=== PATIENT | male | born 1985 | race Two or more races ===

== ENCOUNTER 2019-10-07 10:34 | Emergency (ER) | payer SELFPAY ==
[~2019-10-07] VITALS: Ht 167.6 cm; Wt 61.3 kg
[2019-10-07] MEDS ORDERED: OXYMETAZOLINE 0.05% NASAL SPRAY 30ML BOTTLE. NS ONE (11:11)
--- NOTE | 2019-10-07 11:16 | PHYS DOC ---
Past History Past Medical History: No Pertinent History Past Surgical History: No Surgical History Alcohol Use: Occasionally General Adult EDM: Chief Complaint: NOSEBLEED HPI: HPI: 34-year-old male past medical history significant for insomnia presents the ED with complaints of bleeding from his left nose that started on 4:00 this morning, sent here by his employer. No prior history of similar symptoms. No recent surgeries or trauma to the face. Is not on any anticoagulants, takes no routine medications. Follows with pcp who has diagnosed him with insomnia. Is concerned the chemicals that he is exposed to at work may have caused this - is a cook, is wearing a facemask. Occasional alcohol use. No known exposure to COVID. Review of systems: Denies associated fever, chills, cough, sore throat, neck stiffness, headache, chest pain or pressure, dyspnea, orthopnea, hemoptysis, n/v/d/c, hematemesis, rash, abdominal or back pain. Current Medications: Current Meds: Current Medications Medications (Trade) Dose Ordered Sig/Elyse Start Time Stop Time Status Last Admin Dose Admin Oxymetazoline HCl (Afrin) 100 spray STK-MED ONCE 10/07/19 11:11 10/07/19 11:11 DC Allergies: Allergies: Allergies Coded Allergies Type Severity Reaction Last Updated Verified No Known Drug Allergies 10/07/19 No Physical Exam: PE: Constitutional: Well developed, well nourished, no acute distress, non-toxic appearance. [] HENT: Normocephalic, atraumatic, bilateral external ears normal, oropharynx moist, no oral exudates, left anterior nare with blood clot at nasal septum, 9 o'clock position, no active bleeding from the nose, oropharynx pain with no active bleeding, clear right nare Eyes: EOMI, conjunctiva normal, no discharge. [] Neck: Normal range of motion, no tenderness, supple, no stridor. [] Cardiovascular:Heart rate regular rhythm, no murmur [] Lungs & Thorax: Bilateral breath sounds clear to auscultation [] Abdomen: Bowel sounds normal, soft, no tenderness, no masses, no pulsatile masses. [] Skin: Warm, dry, no erythema, no rash. [] Back: No tenderness, no CVA tenderness. [] Extremities: No tenderness, no cyanosis, no clubbing, ROM intact, no edema. [] Neurologic: Alert and oriented X 3, normal motor function, normal sensory funct ion, no focal deficits noted. [] Psychologic: Affect normal, judgement normal, mood normal. [] Current Patient Data: Vital Signs: Vital Signs Date Time Temp Pulse Resp B/P (MAP) Pulse Ox O2 Delivery O2 Flow Rate FiO2 10/07/19 10:35 97.9 86 18 133/83 (100) 96 Room Air EKG: EKG: [] Radiology/Procedures: Radiology/Procedures: [] Course & Med Decision Making: Course & Med Decision Making Pertinent Labs and Imaging studies reviewed. (See chart for details) Concern for left anterior epistaxis with intact blood clot, no active bleeding. Sinus precautions recommended. Afrin and nasal clamp given in the ED. Encouraged urgent outpatient follow-up with PMD and ENT at . Life-threatening processes were considered (posterior epistaxis, hemorrhagic shock, trauma/facial fxs, ICH, etc) but are low suspicion at this time, given history and physical exam. All patient's questions were answered and pt was stable at time of discharge. I spoken with the patient and her caregivers. I explained the patient's condition, diagnoses and treatment plan based on the information available to me at this time. I have answered the patient and her caregiver's questions and addressed any concerns. The patient and her caregivers have a good understan ding of patient's diagnosis, condition and treatment plan as can be expected at this point. Vital signs have been stable. Patient's condition is stable and appropriate for discharge from the emergency department. Patient will pursue further outpatient evaluation with primary care physician or other designated or consulting physician as outlined in the discharge instructions. The patient and/or caregivers are agreeable to this plan of care and follow-up instructions have been explained in detail. The patient and/or caregivers have received these instructions in written form and have expressed an understanding of the discharge instructions. The patient and/or caregivers are aware that any significant change of condition or worsening of symptoms should prompt immediate return to this or the closest emergency department or call to 911. Hx/PE obtained using packing supervisor services. Geronimo Disclaimer: Geronimo Disclaimer: This electronic medical record was generated, in whole or in part, using a voice recognition dictation system. Departure Departure: Impression: Primary Impression: Anterior epistaxis Disposition: HOME/RESIDENCE PRIOR TO ADM Condition: STABLE Patient Instructions: Nosebleed Additional Instructions: ENT-Dr. Shane Hager M.D., [facility] [address] [place] [address] Justification of Admission: Justification of Admission: Justification of Admission Dx: N/A ISAIAS ERICKSON DO Oct 07, 2019 11:15
[2019-10-07] MEDS: OXYMETAZOLINE 0.05% NASAL SPRAY 30ML BOTTLE. NS ONE (11:19)
[2019-10-07 11:40] VITALS: BP 129/80
== END 2019-10-07 11:40 | disposition home or self-care (01) ==
LOC: ER 10:34
DX: R04.0 Epistaxis (principal); G47.00 Insomnia, unspecified
CPT/HCPCS: 99282

== ENCOUNTER 2020-03-25 14:05 | Emergency (ER) | payer SELFPAY ==
[~2020-03-25] VITALS: Ht 167.6 cm; Wt 61.3 kg
[2020-03-25 14:06] VITALS: BP 129/80
--- NOTE | 2020-03-25 14:21 | PHYS DOC ---
Past History Past Medical History: No Pertinent History Past Surgical History: No Surgical History Alcohol Use: Occasionally Adult General Chief Complaint Chief Complaint: SEIZURE HPI HPI Patient is a 35-year-old male, does not speak Lithuanian, house literary writer service used to interpret Lithuanian/Slovenian medical language. Patient was brought to the emergency department by EMS after he had a seizure at work. Patient is in a postictal state, limited HPI from patient. Patient does not remember seizure, does not remember how he arrived to the ER today. Patient states he hit himself in the head with a door at work accidentally last night at approximately 2330. Patient denies any past seizure history, denies any past medical history, denies any past surgical history, denies taking medications at home, denies allergies to medications. Patient currently denies any aches or pains. Patient remains in a postictal type state during HPI. Patient denies being a cigarette smoker, states he drinks occasionally, denies illicit drug use. Review of Systems Review of Systems 14 body systems of review of systems have been reviewed. See HPI for pertinent positives and negative responses, otherwise all other systems are negative, nonpertinent or noncontributory. Allergies Allergies Allergies Coded Allergies Type Severity Reaction Last Updated Verified No Known Drug Allergies 10/07/19 No Physical Exam Physical Exam Constitutional: Well developed, well nourished, no acute distress, non-toxic appearance. Patient anxious during physical exam. HENT: Normocephalic, atraumatic, bilateral external ears normal, oropharynx moist, no oral exudates, nose normal. No depressions of the skull appreciated, no adenopathy of the head or neck appreciated, patient's tongue with puncture wounds consistent with biting of teeth distal right tongue surfaces, no bleeding, dark erythema. No loss of movement of the tongue. No swelling of the tongue appreciated, no uvular edema appreciated, oropharynx pink moist and without infectious process. Poor oral dentition, with dental caries. Eyes: PERRLA, EOMI, conjunctiva normal, no discharge. Neck: Normal range of motion, no tenderness, supple, no stridor. Cardiovascular:Heart rate regular rhythm, no murmur Lungs & Thorax: Bilateral breath sounds clear to auscultation Abdomen: Bowel sounds normal, soft, no tenderness, no masses, no pulsatile masses. Skin: Warm, dry, no erythema, no rash. Skin of face has multiple abrasions, abrasions to right elbow. Back: No tenderness, no CVA tenderness. Extremities: No tenderness, no cyanosis, no clubbing, ROM intact, no edema. Neurologic: Alert and oriented to self and year only, normal motor function, normal sensory function, no focal deficits noted. During physical examination with certified court interpreter, certified court interpreter voiced concern that patient was answering questions inappropriately. Psychologic: Affect normal, judgement normal, mood normal. EKG EKG [] Radiology/Procedures Radiology/Procedures PATIENT: DAVI CARRILLO ACCOUNT: [id number] : 1985 LOCATION: ER AGE: 35 SEX: M EXAM STATUS: REG ER ORD. PHYSICIAN: PRINCE MAHONEY APRN REASON: NEW ONSET SEIZURE WITH FALL PROCEDURE: CT HEAD AND CERVICAL SPINE WO EXAM: Head and cervical spine CT without contrast. HISTORY: Seizure and fall. TECHNIQUE: Computed tomographic images of the head and cervical spine were obtained without contrast. *One or more of the following individualized dose reduction techniques were utilized for this examination: 1. Automated exposure control. 2. Adjustment of the mA and/or kV according to patient size. 3. Use of iterative reconstruction technique. COMPARISON: None. FINDINGS: Head: There is no hemorrhage. There is no mass effect or midline shift. There is no hydrocephalus. The townsend-white matter differentiation pattern is intact. The orbits and visualized paranasal sinuses mastoid air cells are unremarkable. There is no calvarial lesion. Cervical spine: There is no listhesis. The vertebral vazquez are normal in height and the disc spaces are preserved. There is minimal multilevel endplate remodeling. There is no significant stenosis. The airways midline and widely patent. The lung apices are unremarkable. IMPRESSION: No acute intracranial finding or evidence of acute cervical spine trauma. Electronically signed by: Jacinta Hunt MD (03/25/2020 3:21 PM) [facility] DICTATED AND SIGNED BY: JACINTA HUNT MD DATE: 03/25/20 1520 CC: PRINCE MAHONEY APRN; ROMAIN HANKS MD; PCP,NO ~MTH0 0 Heart Score Risk Factors: Risk Factors: DM, Current or recent (<one month) smoker, HTN, HLP, family history of CAD, obesity. Risk Scores: Risk Factors: DM, Current or recent (<one month) smoker, HTN, HLP, family history of CAD, obesity. Course & Med Decision Making Course & Med Decision Making Pertinent Labs and Imaging studies reviewed. (See chart for details) 35-year-old male, vital signs reviewed, brought to the emergency department for seizure at work today just prior to arrival. Physical examination consistent with post ictal type neurological response, patient's tongue appears to have been bitten, certified court interpreter voiced concern that patient was answering questions inappropriately and in a confused manner. Discussed case with ED attending Dr. Hanks who physically examined the patient and feels he is not able to make his own medical decisions at this time. Plan, CT head and C-spine, CBC, CMP, urinalysis assay, urine drug screen, alcohol level. Unknown tetanus status, tetanus will be brought up-to-date in ER today. technical business systems analyst reported potassium 2.7, ordered 40 mEq p.o. potassium to be given in the ED. Discussed clinical findings with patient using hospital literary writer service, patient was reevaluated and was determined that he can make his own medical decisions, patient is alert and oriented x3 at this time, patient is no longer in a postictal state, patient refused recommendation for admission to the hospital related to his low platelet count and diagnosis of thrombocytopenia. Patient gave verbal understanding of risks versus benefits of staying for hospital admission versus leaving AGAINST MEDICAL ADVICE, patient states he understands that he may if not treated. Patient gave verbal understanding the need to follow-up with a neurologist related to his seizure. Patient gave verbal understanding of his low potassium count and need to eat calcium rich foods, a prescription for potassium supplement was given to the patient prior to his leaving AGAINST MEDICAL ADVICE. Discussed case with ED attending Dr. Hanks who is aware patient is leaving this emergency department AGAINST MEDICAL ADVICE. Dragon Disclaimer Dragon Disclaimer This electronic medical record was generated, in whole or in part, using a voice recognition dictation system. Departure Departure: Impression: Primary Impression: Thrombocytopenia Additional Impressions: Left against medical advice Seizure Low serum potassium level Disposition: 07 AMA/ELOPED/LWBS Condition: STABLE Referrals: PCP,NO (PCP) Patient Instructions: Discharge Against Medical Advice, Seizure, Adult, Thrombocytopenia Additional Instructions: We have discussed the need to admit you to the hospital related to your low platelet count. Your platelet count is 28, this is critically low. You have elected to not be admitted into the hospital and leave the emergency department AGAINST MEDICAL ADVICE. I urged you to reconsider and be admitted into the hospital for further evaluation of your low platelet count. Also your potassium was low, we have given you an oral potassium supplement, you must eat potassium rich foods and take a potassium supplement. Please return to the emergency department for worsening symptoms or other concerns. You had a seizure today, your CAT scan did not show any concerning findings however you must follow-up with a neurologist for further evaluation of your seizures. EMERGENCY DEPARTMENT GENERAL DISCHARGE INSTRUCTIONS Thank you for coming to [facility] (ED) today and trusting us with you care. We trust that you had a positivie experience in our Emergency Department. If you wish to speak to the department management, you may call the director at [phone]. YOUR FOLLOW UP INSTRUCTIONS ARE FOLLOWS: 1. Do you have a private Doctor? If you do not have a private doctor, please ask for a resource list of physicians or clinics that may be able to assist you with follow up care. 2. The Emergency Physician has interpreted your x-rays. The X-Ray specialist will also review them. If there is a change in the findings, you will be notified in 48 hours when at all possible. 3. A lab test or culture has been done, your results will be reviewed and you will be notified if you need a change in treatment. ADDITIONAL INSTRUCTIONS AND INFORMATION: 1. Your care today has been supervised by a physician who is specially trained in emergency care. Many problems require more than one evaluation for a complete diagnosis and treatment. We recommend that you schedule your follow up appointment as recommended to ensure complete treatment of you illness or injury. If you are unable to obtain follow up care and continue to have a problem, or if your condition worsens, we recommend that you return to the ED. 2. We are not able to safely determine your condition over the phone nor are we able to give sound medical advice over the phone. For these safety reasons, if you call for medical advice we will ask you to come to the ED for further evaluation. 3. If you have any questions regarding these discharge instructions please call the ED at [phone]. SAFETY INFORMATION: In the interest of safety, wellness, and injury prevention; we encourage you to wear your sealbelt, if you smoke; quite smoking, and we encourage family to use a protective helmet for bicycling and other sporting events that present an increased risk for head injury. IF YOUR SYMPTOMS WORSEN OR NEW SYMPTOMS DEVELOP, OR YOU HAVE CONCERNS ABOUT YOUR CONDITION; OR IF YOUR CONDITION WORSENS WHILE YOU ARE WAITING FOR YOUR FOLLOW UP APPOINTMENT; EITHER CONTACT YOUR PRIMARY CARE DOCTOR, THE PHYSICIAN WHOSE NAME AND NUMBER YOU WERE GIVEN, OR RETURN TO THE ED IMMEDIATELY. Patient does not wish to proceed with medical care recommended by IVÁN Barton, LUZ, patient given information related to possible complications, up to and including , which could occur as a result of leaving the hospital at this time. Patient verbalizes understanding of risks involved due to leaving against medical advice. Patient has signed AMA form. Scripts Potassium Chloride (KLOR-CON 10) 10 Meq Tablet.er 1 TAB PO DAILY for SUPPLEMENT for 30 Days, #30 TAB 0 Refills Prov: PRINCE MAHONEY APRN 03/25/20 Problem Qualifiers PRINCE MAHONEY APRN Mar 25, 2020 14:21
[2020-03-25 14:50] LABS: BASO % 1 % (0-3); EOS % 0 % (0-3); HEMATOCRIT 34.6 % (39.0-53.0); HEMOGLOBIN 11.5 g/dL (13.0-17.5); LYMPH # 0.5 x10^3/uL (1.0-4.8); LYMPH % 8 % (24-48); MEAN CORPUSCULAR HEMOGLOBIN 30 pg (25-35); MEAN CORPUSCULAR HGB CONC 33 g/dL (31-37); MEAN CORPUSCULAR VOLUME 91 fL (79-100); MONO # 0.5 x10^3/uL (0.0-1.1); MONO % 9 % (0-9); NEUT # 4.9 x10^3uL (1.8-7.7); NEUT % 82 % (31-73); PLATELET COUNT 28 x10^3/uL (140-400); RED CELL DISTRIBUTION WIDTH 14.6 % (11.5-14.5)
[2020-03-25] MEDS ORDERED: BACITRACIN ZINC TOPICAL OINT PACKET. TP ONE (15:00)
[2020-03-25] MEDS ORDERED: DIPH,PERTUSS(ACELL),TET VAC/PF 0.5 ML SYRINGE. VAX IM ONE (15:00)
[2020-03-25] MEDS ORDERED: HALOPERIDOL LACT 5 MG/ML VIAL. ONE (15:02)
--- NOTE | 2020-03-25 15:26 | RAD ---
EXAM: Head and cervical spine CT without contrast. HISTORY: Seizure and fall. TECHNIQUE: Computed tomographic images of the head and cervical spine were obtained without contrast. *One or more of the following individualized dose reduction techniques were utilized for this examina tion: 1. Automated exposure control. 2. Adjustment of the mA and/or kV according to patient size. 3. Use of iterative reconstruction technique. COMPARISON: None. FINDINGS: Head: There is no hemorrhage. There is no mass effect or midline shift. There is no hydrocephalus. Th e townsend-white matter differentiation pattern is intact. The orbits and visualized paranasal sinuses ma stoid air cells are unremarkable. There is no calvarial lesion. Cervical spine: There is no listhesis. The vertebral vazquez are normal in height and the disc spaces ar e preserved. There is minimal multilevel endplate remodeling. There is no significant stenosis. The a irways midline and widely patent. The lung apices are unremarkable. IMPRESSION: No acute intracranial finding or evidence of acute cervical spine trauma. Electronically signed by: Jacinta Pak MD (03/25/2020 3:21 PM) [facility]
[2020-03-25 15:33] LABS: POTASSIUM ISTAT 2.7 mmol/L (3.5-5.0)
[2020-03-25] MEDS ORDERED: POTASSIUM CHLORIDE 20 MEQ TABLET.ER. PO ONE (15:45)
[2020-03-25 15:53] LABS: HEMOGLOBIN ISTAT 8.5 gm/dL
[2020-03-25] MEDS ORDERED: DEXAMETHASONE SOD PHOS 10 MG/ML VIAL. IM ONE (16:30)
[2020-03-25] MEDS ORDERED: POTA10TA5 PO (17:00)
[2020-03-25 17:49] LABS: AST (SGOT) 66 U/L (15-37); BLOOD UREA NITROGEN 11 mg/dL (8-26); BUN/CREATININE RATIO 11 (6-20); CALCIUM 8.6 mg/dL (8.5-10.1); CARBON DIOXIDE 22 mmol/L (21-32); GFR 84.1; GLUCOSE 151 mg/dL (70-99); TOTAL BILIRUBIN 1.2 mg/dL (0.2-1.0)
[2020-03-25 18:18] LABS: ALBUMIN 4.1 g/dL (3.4-5.0); ALBUMIN/GLOBULIN RATIO 0.8 (1.0-1.7); ALK PHOS 81 U/L (46-116); ANION GAP 15 (6-14); CHLORIDE 96 mmol/L (98-107); SODIUM 133 mmol/L (136-145)
[2020-03-25 18:55] LABS: ALT (SGPT) < 6 U/L (16-63)
[2020-03-25 20:32] LABS: PLT ESTIMATE DECREASED (ADEQUATE)
[2020-03-27 11:41] LABS: POTASSIUM 2.8 mmol/L (3.5-5.1)
== END 2020-03-25 18:05 | disposition left against medical advice (07) ==
LOC: ER 14:05
DX: D69.6 Thrombocytopenia, unspecified (principal); R56.9 Unspecified convulsions; R79.89 Other specified abnormal findings of blood chemistry
CPT/HCPCS: 36415; 70450; 72125; 80047; 80053; 85025; 85049; 85379; 85384; 85610; 85730; 99285; G0480